=== PATIENT | female | born 2000 | race Caucasian/White ===

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

== ENCOUNTER 2022-02-09 19:01 | Emergency (ER) | payer MEDICAID ==
[~2022-02-09] VITALS: Ht 180.3 cm; Wt 103.6 kg
[2022-02-09 20:38] LABS: BASOPHILS % (AUTO) 0.4 % (0-1); EOSINOPHILS # (AUTO) 0.1 X10'3 (0-0.9); EOSINOPHILS % (AUTO) 1.2 % (0-6); HEMATOCRIT 40.4 % (35.0-45.0); HEMOGLOBIN 13.5 g/dl (12.0-16.0); LYMPHOCYTES # (AUTO) 2.3 X10'3 (1.1-4.8); LYMPHOCYTES % (AUTO) 23.9 % (21-51); MEAN CORPUSCULAR HEMOGLOBIN 30.8 PG (27.0-31.0); MEAN CORPUSCULAR HGB CONC 33.4 g/dL (33.0-36.5); MEAN CORPUSCULAR VOLUME 92.3 FL (78-98); MEAN PLATELET VOLUME 7.6 FL (7.4-10.4); MONOCYTES # (AUTO) 0.8 X10'3 (0-0.9); NEUTROPHILS # (AUTO) 6.5 X10'3 (1.8-7.7); NEUTROPHILS % (AUTO) 66.5 % (42-75); PLATELET COUNT 402 X10'3 (140-440); RED BLOOD COUNT 4.38 X10'6 (4.20-5.60); RED CELL DISTRIBUTION WIDTH 15.6 % (11.5-14.5); WHITE BLOOD COUNT 9.8 X10'3 (4.5-11.0)
[2022-02-09 20:54] LABS: ALANINE AMINOTRANSFERASE 17 U/L (12-78); ALBUMIN 3.6 G/DL (3.4-5.0); ALBUMIN/GLOBULIN RATIO 0.8 (1.1-1.5); ALKALINE PHOSPHATASE 85 IU/L (20-180); ANION GAP 8 (8-16); ASPARTATE AMINO TRANSFERASE 11 U/L (10-37); BILIRUBIN,TOTAL 0.2 MG/DL (0.1-1.0); BLOOD UREA NITROGEN 16 MG/DL (7-18); BUN/CREATININE RATIO 24.2 (6.6-38.0); CALCIUM 8.9 MG/DL (8.5-10.1); CHLORIDE 106 MMOL/L (99-107); CREATININE 0.66 MG/DL (0.40-0.90); GLUCOSE 91 MG/DL (70-104); POTASSIUM 3.9 MMOL/L (3.5-5.1); SODIUM 140 MMOL/L (135-145); TOTAL CARBON DIOXIDE 26.1 MMOL/L (24-32); TOTAL PROTEIN 8.1 G/DL (6.4-8.2); eGFR > 90 ML/MIN
[2022-02-09 21:15] VITALS: BP 140/84
== END 2022-02-09 21:17 | disposition home or self-care (01) ==
LOC: ER 19:01
DX: R20.2 Paresthesia of skin (principal); R53.1 Weakness; H53.8 Other visual disturbances
CPT/HCPCS: 36415; 80053; 83735; 85025; 99284

== ENCOUNTER 2022-04-10 15:39 | Emergency (ER) | payer MEDICAID ==
[~2022-04-10] VITALS: Ht 180.3 cm; Wt 110.0 kg
[2022-04-10 16:01] VITALS: BP 164/88
[2022-04-10] MEDS ORDERED: HYDROcodone/acetaminophen 5mg/325mg tablet PO ONE (16:35)
[2022-04-10] MEDS ORDERED: ondansetron 4mg rapidly disintigrating tab PO ONE (16:35)
[2022-04-10] MEDS ORDERED: ketorolac tromethamine 15mg/ml inj. IM ONE (16:35)
== END 2022-04-10 18:06 | disposition home or self-care (01) ==
LOC: ER 15:40
DX: M79.672 Pain in left foot (principal)
CPT/HCPCS: 29515; 73610; 73660; 96372; 99284; J1885; L4360

== ENCOUNTER 2023-01-09 07:44 | Emergency (ER) | payer MEDICAID ==
[~2023-01-09] VITALS: Ht 182.9 cm; Wt 103.2 kg
[2023-01-09 10:30] VITALS: BP 124/83
== END 2023-01-09 10:54 | disposition home or self-care (01) ==
LOC: ER 07:46
DX: O20.8 Other hemorrhage in early pregnancy (principal); Z3A.01 Less than 8 weeks gestation of pregnancy
CPT/HCPCS: 99281

== ENCOUNTER 2023-03-22 18:18 | Emergency (ER) | payer MEDICAID ==
[~2023-03-22] VITALS: Ht 182.9 cm; Wt 103.0 kg
[2023-03-22 18:59] VITALS: BP 113/80
== END 2023-03-22 18:56 | disposition home or self-care (01) ==
LOC: ER 18:18
DX: E53.8 Deficiency of other specified B group vitamins (principal); G62.9 Polyneuropathy, unspecified
CPT/HCPCS: 99281